=== PATIENT | female | born 1960 | race Caucasian/White ===

== ENCOUNTER 2018-08-19 17:52 | Emergency (ER) | payer MEDICARE ==
--- NOTE | 2018-08-19 20:47 | ED Physician Documentation ---
Lower Extremity Injury - HPI Stated Complaint: L Foot pain Chief Complaint: Lower Extremity Injury Additional Information: Patient presents to ED with left foot pain since stepping off her porch wrong. Patient states her foot hit at a weird angle and her ankle twisted to one side and down she went. Since that time she has had 10/10 pain with sweling in her left foot. Onset: hours Where: home Severity: moderate Context: twist Associated Symptoms:: swelling Modifying Factors:: pain on movement - ROS CONST: no problems CVS/RESP: none GI/: denies: nausea, vomiting MS/SKIN/LYMPH: foot swelling NEURO: denies: headache, head injury - PAST HX Past History: none Allergies/Adverse Reactions: Allergies Allergy/AdvReac Type Severity Reaction Status Date / Time Sulfa (Sulfonamide AdvReac Intermediate Abd pain Verified 08/19/18 19:49 Antibiotics) [Sulfa(Sulfonamide Antibiotics)] Home Medications: Ambulatory Orders Medication Instructions Recorded Gabapentin 1 tab PO DAILY 11/15/12 Hydrocodone Bit/Acetaminophen 1 - 2 tab PO Q4H PRN 11/15/12 [Hydrocodon-Acetaminophn 10-325] amLODIPine BESYLATE [Norvasc] 2.5 mg PO D 11/15/12 Pregabalin [Lyrica] 300 mg PO BID 01/25/13 Fentanyl 1 patch TOP Q72 08/19/18 Hydrocodone/Acetaminophen [Vicodin 1 tab PO BID 08/19/18 Hp 10-300 mg Tablet] rOPINIRole HCL [Requip] 1 tab PO HS 08/19/18 - SOCIAL HX Smoking History: cigarettes, greater than 1 pack/day Alcohol Use: none Drug Use: none - FAMILY HX Family History: none - VITAL SIGNS Vital Signs: Vital Signs Temp Pulse Resp BP Pulse Ox 98.2 F 84 20 142/83 98 08/19/18 21:20 08/19/18 21:20 08/19/18 21:20 08/19/18 21:20 08/19/18 21:20 - REVIEWED ASSESSMENTS Nursing Assessment Reviewed: Yes Vitals Reviewed: Yes ED Results Lab/Radiology - Radiology Radiology Impressions: Report Submission Date: Aug 19, 2018 8:38:47 PM CDT Patient Study Name: JIMENEZ HUGO Date: Aug 19, 2018 7:49:03 PM CDT Modality Type: DX Gender: F Description: ANKLE 3 VIEWS OR MORE : 60 Institution: [facility] Physician: EDSON PETER Left ankle, 3 views HISTORY Injury FINDINGS There is no fracture, dislocation or abnormal bone production or destruction. IMPRESSION Normal. Electronically signed on Aug 19, 2018 8:38:47 PM CDT by: Nick Miller Report Submission Date: Aug 19, 2018 8:35:49 PM CDT Patient Study Name: JIMENEZ HUGO Date: Aug 19, 2018 7:49:03 PM CDT Modality Type: DX Gender: F Description: FOOT 3 VIEWS OR MORE : 60 Institution: [facility] Physician: EDSON PETER Left foot, 3 views HISTORY Injury FINDINGS There is no dislocation or abnormal bone destruction. Fracture at the base of the first metatarsal is suspected. There is no evidence of disruption of the Lisfranc ligament. IMPRESSION Suspected first metatarsal fracture. Electronically signed on Aug 19, 2018 8:35:49 PM CDT by: Nick Miller - Orders Orders: ED Orders Category Date Time Status Walking Boot 1T Care 08/19/18 20:56 Active FOOT 3 VIEWS OR MORE [RAD] Stat Exams 08/19/18 Completed LEFT ANKLE [ANKLE 3 VIEWS OR MORE] [RAD] Stat Exams 08/19/18 Completed Oxycodone HCl/Acetaminophen [Percocet 10-325] Med 08/19/18 20:58 Discontinued 1 each PO NOW ONE oxyCODONE HCL/ACETAMINOPHEN [Percocet 5-325] Med 08/19/18 21:08 Discontinued 2 each PO NOW ONE Lower Extremities Injury Phy - Physical Exam General Appearance: no acute distress, alert Hips: bilateral hip: non-tender, normal inspection, normal range of motion Legs: bilateral: non-tender, normal inspection, normal range of motion Knees: bilateral: non-tender, normal inspection, normal range of motion Ankle: left: swelling Foot: left foot: limited range of motion, pain, soft tissue tenderness, swelling Gait: unable to bear weight Neuro/Vascular/Tendon: no vascular compromise, motor nml Head/ENT: nml inspection Neck/Back: nml inspection Resp/CVS: chest non-tender, breath sounds nml Abdomen: non-tender Discharge Clincal Impression: Metatarsal bone fracture Qualifiers: Encounter type: initial encounter Metatarsal bone: first Fracture type: closed Fracture alignment: nondisplaced Laterality: left Qualified Code(s): S92.315A - Nondisplaced fracture of first metatarsal bone, left foot, initial encounter for closed fracture Referrals: Fadia Garcias MD [Primary Care Provider] - 2 Days Additional Instructions: 1. [place] as needed for pain 2. Keep foot elevated at rest 3. Apply ice as needed for comfort 4. Follow up as soon as possible with [facility] [address] [place], [place] [address] Call in the morning for an appointment 5. Return to the ER for new or worsening symptoms Condition: Stable Disposition: 01 HOME, SELF-CARE Decision to Admit: NO Date of Decison to Admit: 08/19/18 Decision Time: 20:50
--- NOTE | 2018-08-19 20:47 | Diagnostic Imaging Report ---
EDSON PETER [facility] [address] [facility] [address] [address] Report Submission Date: Aug 19, 2018 8:35:49 PM CDT Patient Study Name: JIMENEZ HUGO Date: Aug 19, 2018 7:49:03 PM CDT Modality Type: DX Gender: F Description: FOOT 3 VIEWS OR MORE : 60 Institution: [facility] Physician: EDSON PETER Left foot, 3 views HISTORY Injury FINDINGS There is no dislocation or abnormal bone destruction. Fracture at the base of the first metatarsal is suspected. There is no evidence of disruption of the Lisfranc ligament. IMPRESSION Suspected first metatarsal fracture. Electronically signed on Aug 19, 2018 8:35:49 PM CDT by: Nick COLLIER
--- NOTE | 2018-08-19 20:48 | Diagnostic Imaging Report ---
EDSON PETER [facility] [address] [facility] [address] [place], [place]. [address] Report Submission Date: Aug 19, 2018 8:38:47 PM CDT Patient Study Name: JIMENEZ HUGO Date: Aug 19, 2018 7:49:03 PM CDT Modality Type: DX Gender: F Description: ANKLE 3 VIEWS OR MORE : 60 Institution: [facility] Physician: EDSON PETER Left ankle, 3 views HISTORY Injury FINDINGS There is no fracture, dislocation or abnormal bone production or destruction. IMPRESSION Normal. Electronically signed on Aug 19, 2018 8:38:47 PM CDT by: Nick COLLIER
[2018-08-19] MEDS ORDERED: oxyCODONE/ACETAMINOPHEN 5/325 TABLET PO ONE (21:08)
[2018-08-19 21:21] VITALS: BP 142/83
== END 2018-08-19 21:20 | disposition home or self-care (01) ==
LOC: ED 17:52
DX: S92.315A Nondisplaced fracture of first metatarsal bone, left foot, initial encounter for closed fracture (principal); W10.8XXA Fall (on) (from) other stairs and steps, initial encounter; Y93.01 Activity, walking, marching and hiking; Y92.008 Other place in unspecified non-institutional (private) residence as the place of occurrence of the external cause
CPT/HCPCS: 73610; 73630; 99283; 99284

== ENCOUNTER 2019-01-20 19:43 | Emergency (ER) | payer MEDICARE ==
--- NOTE | 2019-01-20 19:46 | ED Physician Documentation ---
Foot Injury - HISTORIAN Historian: patient - HPI Stated Complaint: right ankle and foot pain after falling Chief Complaint: Ankle Injury Onset: hours (3) Where: home Severity: moderate Context: fall Associated Symptoms:: tingling, swelling, unable to bear weight. denies: numbness distally, snapping sensation, popping sensation, became dizzy Modifying Factors:: pain on movement Further Comments: yes (She has had broken toes about 4 months ago and she continues to wear a walking boot for extra support the boot has worn down on the heel and she states she slipped and fell due to this. Pain in right ankle /foot and she has not taken any OTC meds. She did take a vicodin prior to coming and rates pain 10/19) - ROS CONST: no problems CVS/RESP: none MS/SKIN/LYMPH: none - PAST HX Past History: other (chronic pain ) Immunizations: UTD Allergies/Adverse Reactions: Allergies Allergy/AdvReac Type Severity Reaction Status Date / Time Sulfa (Sulfonamide AdvReac Intermediate Abd pain Verified 01/20/19 20:07 Antibiotics) [Sulfa(Sulfonamide Antibiotics)] Home Medications: Ambulatory Orders Medication Instructions Recorded amLODIPine BESYLATE [Norvasc] 2.5 mg PO D 11/15/12 Pregabalin [Lyrica] 300 mg PO BID 01/25/13 Fentanyl 1 patch TOP Q72 08/19/18 Hydrocodone/Acetaminophen [Vicodin 1 tab PO BID 08/19/18 Hp 10-300 mg Tablet] rOPINIRole HCL [Requip] 1 tab PO HS 08/19/18 Omeprazole (Nf) [Prilosec (Nf)] 1 cap PO DAILY 01/20/19 - SOCIAL HX Smoking History: cigarettes Alcohol Use: none Drug Use: none - FAMILY HX Family History: none - VITAL SIGNS Vital Signs: Vital Signs Temp Pulse Resp BP Pulse Ox 142/83 08/19/18 21:20 - REVIEWED ASSESSMENTS Nursing Assessment Reviewed: Yes Vitals Reviewed: Yes Progress - Progress Progress: 2100: discussed case with Dr Benoit DG 2119: Discussed with pt she is refusing to see Dr Benoit She will see her own ortho DG 2134: Discussed case with Dr Jony GARCIA at pt request and he states she can be in walking boot non weight bearing he will call with appt in am - she is aware and she has pain meds at home DG refuses crutches she has some at home DG ED Results Lab/Radiology - Radiology Radiology Impressions: Right ankle, three views History: Pain and swelling. Findings: There is an oblique nondisplaced fracture of the distal fibula the level of the distal syndesmosis. The ankle mortise is otherwise normal. There is lateral ankle soft tissue swelling. Impression: 1. Nondisplaced distal fibular fracture with lateral ankle soft tissue swelling. Electronically signed on Jan 20, 2019 8:37:41 PM CDT by: Sp Simeon Right foot, three views. History: Pain/swelling after fall Findings: there is an oblique fracture of the distal fibula present at the level of the syndesmosis. The remaining osseous structures are unremarkable. There is lateral ankle soft tissue swelling present. The bone alignment is normal. Impression: 1. Oblique nondisplaced distal fibular fracture. Electronically signed on Jan 20, 2019 8:36:49 PM CDT by: Sp Simeon CT of the right ankle Clinical history ankle fracture Technique: 1.25 mm slices were performed through the right ankle with multiplanar reconstructions Findings: There is an oblique fracture the distal fibula. There is vertical fracture of the posterior tibia. Talus and calcaneus appear intact. No foot fractures identified.. Soft tissue swelling is present around the ankle. The medial malleolus appears intact. Impression: Spiral nondisplaced distal fibular fracture A vertical nondisplaced posterior malleolus fracture Intact medial malleolus although it cannot rule out ligamentous injury Electronically signed on Jan 20, 2019 10:09:26 PM CDT by: Doug Diaz Foot Injury Physical Exam - Physical Exam General Appearance: no acute distress, alert Foot: right foot: limited range of motion, swelling, bilateral foot: non-tender, normal inspection, normal range of motion, no evidence of injury, abrasions/lacerations, bone tenderness, N/A: deformity, ecchymosis, infection, nodule, pain, soft tissue tenderness Ankle: right: limited range of motion, pain, soft tissue tenderness, swelling, left: non-tender, normal inspection, N/A: normal range of motion (due to boot CIRCLE ), other (Pulses + ) Gait: limited by pain Neuro: sensation nml Vascular: no vascular compromise Tendons: tendon function nml Leg/Knee/Thigh: uninjured above ankle Skin: intact Head/ENT: nml inspection Neck/Back: nml inspection Resp/CVS: chest non-tender, breath sounds nml, heart sounds nml, no resp. distress, lungs clear Abdomen: non-tender Discharge Clincal Impression: Fracture of distal end of fibula Qualifiers: Encounter type: initial encounter Fracture type: closed Fracture morphology: other fracture Laterality: right Qualified Code(s): S82.831A - Other fracture of upper and lower end of right fibula, initial encounter for closed fracture Referrals: Fadia Garcias MD [Primary Care Provider] - 2 Days Comments: 1. Call Office and set up appt with Dr Benoit Fri or 2. Elevate and ice 3. Continue meds at home 4. Follow up with Ortho - referral made she is stating she will see her own orth 5. Return to ER for any increasing concerns Condition: Stable Decision to Admit: NO Date of Decison to Admit: 01/20/19 Decision Time: 22:43
[2019-01-20 20:03] VITALS: BP 121/82
--- NOTE | 2019-01-21 14:29 | Diagnostic Imaging Report ---
GENARO MILLER [facility] [address] [facility] [address] [place], [place]. [address] Report Submission Date: Jan 20, 2019 8:37:41 PM CDT Patient Study Name: JIMENEZ HUGO Date: Jan 20, 2019 7:53:13 PM CDT Modality Type: DX Gender: F Description: ANKLE 3 VIEWS OR MORE : 60 Institution: [facility] Physician: GENARO MILLER Right ankle, three views History: Pain and swelling. Findings: There is an oblique nondisplaced fracture of the distal fibula the level of the distal syndesmosis. The ankle mortise is otherwise normal. There is lateral ankle soft tissue swelling. Impression: 1. Nondisplaced distal fibular fracture with lateral ankle soft tissue swelling. Electronically signed on Jan 20, 2019 8:37:41 PM CDT by: Sp COLLIER
--- NOTE | 2019-01-21 14:30 | Diagnostic Imaging Report ---
GENARO MILLER [facility] [address] [facility] [place] [facility] [address] [place], [place]. [address] Report Submission Date: Jan 20, 2019 8:36:49 PM CDT Patient Study Name: JIMENEZ HUGO Date: Jan 20, 2019 7:53:14 PM CDT Modality Type: DX Gender: F Description: FOOT 3 VIEWS OR MORE : 60 Institution: [facility] Physician: GENARO MILLER Right foot, three views. History: Pain/swelling after fall Findings: there is an oblique fracture of the distal fibula present at the level of the syndesmosis. The remaining osseous structures are unremarkable. There is lateral ankle soft tissue swelling present. The bone alignment is normal. Impression: 1. Oblique nondisplaced distal fibular fracture. Electronically signed on Jan 20, 2019 8:36:49 PM CDT by: Sp COLLIER
--- NOTE | 2019-01-21 14:33 | Diagnostic Imaging Report ---
GENARO MILLER [facility] [address] [facility] [address] [place], [place]. [address] Report Submission Date: Jan 20, 2019 10:09:26 PM CDT Patient Study Name: JIMENEZ HUGO Date: Jan 20, 2019 9:27:48 PM CDT Modality Type: CT Gender: F Description: CT LOWER EXT W/O CONTR : 60 Institution: [facility] Physician: GENARO MILLER CT of the right ankle Clinical history ankle fracture Technique: 1.25 mm slices were performed through the right ankle with multiplanar reconstructions Findings: There is an oblique fracture the distal fibula. There is vertical fracture of the posterior tibia. Talus and calcaneus appear intact. No foot fractures identified.. Soft tissue swelling is present around the ankle. The medial malleolus appears intact. Impression: Spiral nondisplaced distal fibular fracture A vertical nondisplaced posterior malleolus fracture Intact medial malleolus although it cannot rule out ligamentous injury Electronically signed on Jan 20, 2019 10:09:26 PM CDT by: Doug COLLIER
== END 2019-01-20 23:00 | disposition home or self-care (01) ==
LOC: ED 19:43
DX: S82.831A Other fracture of upper and lower end of right fibula, initial encounter for closed fracture (principal); W01.0XXA Fall on same level from slipping, tripping and stumbling without subsequent striking against object, initial encounter; Y92.009 Unspecified place in unspecified non-institutional (private) residence as the place of occurrence of the external cause; Y93.9 Activity, unspecified
CPT/HCPCS: 73610; 73630; 73700; 99283; 99284